=== PATIENT | male | born 1965 | race Caucasian/White ===

== ENCOUNTER 2019-02-06 14:16 | Inpatient (IN) | payer MEDICAID ==
[~2019-02-06] VITALS: Ht 167.6 cm; Wt 75.3 kg
[2019-02-06] MEDS ORDERED: ONDANSETRON HCL 4MG/2ML INJ IV STA (15:02)
[2019-02-06] MEDS ORDERED: MORPHINE SULFATE 4 MG/ML CPJ (NOT FOR IM USE) IV STA (15:02)
[2019-02-06 15:14] LABS: BASOPHILS % 0.7 % (0.0-2.0); EOSINOPHILS % 0.5 % (0.0-5.0); HEMATOCRIT. 43.9 % (42.0-52.0); HEMOGLOBIN. 14.8 g/dL (14.0-18.0); LYMPHOCYTES % 21.5 % (20.0-50.0); MEAN CORPUSCULAR HEMOGLOBIN 29.3 pg (28.0-32.0); MEAN CORPUSCULAR VOLUME 86.9 fL (80.0-94.0); MEAN PLATELET VOLUME 8.8 fl (7.4-10.4); MONOCYTES % 7.5 % (2.0-8.0); NEUTROPHILS % 69.8 % (40.0-76.0); PLATELET 198 x1000/uL (130-400); RED BLOOD CELL COUNT 5.05 mill/uL (4.7-6.1); RED CELL DISTRIBUTION WIDTH 15.4 % (11.6-14.6)
[2019-02-06] MEDS ORDERED: ASPIRIN 81MG TABLET PO ONE (15:15)
[2019-02-06 15:18] LABS: CHLORIDE 106 mEq/L (98-107)
[2019-02-06 15:20] LABS: PROTHROMBIN TIME 10.3 sec (9.6-11.0)
[2019-02-06 16:16] LABS: CLARITY URINE CLEAR (CLEAR); COLOR URINE YELLOW (YELLOW); KETONES URINE NEGATIVE (NEGATIVE); LEUKOCYTE ESTERASE URINE NEGATIVE (NEGATIVE); NITRITE URINE NEGATIVE (NEGATIVE); OCCULT BLOOD URINE NEGATIVE (NEGATIVE); PH URINE 7.5 (4.5-8.0); PROTEIN URINE NEGATIVE (NEGATIVE); SPECIFIC GRAVITY URINE 1.009 (1.005-1.030); UROBILINOGEN URINE 0.2 E.U./dL (0.2-1.0)
[2019-02-06] MEDS ORDERED: KETOROLAC 30MG/ML VIAL IV ONE (17:15)
[2019-02-06 22:00] VITALS: BP 142/77
[2019-02-07] VITALS: BP 150/85
[2019-02-07 04:00] VITALS: BP 158/87
[2019-02-07] MEDS ORDERED: ACETAMINOPHEN 325MG TABLET PO PRN (05:45)
[2019-02-07] MEDS ORDERED: ZOLPIDEM TARTRATE 5MG TABLET PO PRN (05:45)
[2019-02-07] MEDS ORDERED: ONDANSETRON HCL 4MG/2ML INJ IV PRN (05:45)
[2019-02-07] MEDS ORDERED: KETOROLAC 30MG/ML VIAL IV PRN (06:00)
[2019-02-07 06:24] LABS: BASOPHILS % 0.6 % (0.0-2.0); EOSINOPHILS % 1.8 % (0.0-5.0); HEMOGLOBIN. 14.6 g/dL (14.0-18.0); LYMPHOCYTES % 24.6 % (20.0-50.0); MEAN CORPUSCULAR HEMOGLOBIN 29.7 pg (28.0-32.0); MEAN CORPUSCULAR VOLUME 87.7 fL (80.0-94.0); MEAN PLATELET VOLUME 9.2 fl (7.4-10.4); MONOCYTES % 9.9 % (2.0-8.0); NEUTROPHILS % 63.1 % (40.0-76.0); PLATELET 184 x1000/uL (130-400); RED BLOOD CELL COUNT 4.91 mill/uL (4.7-6.1); RED CELL DISTRIBUTION WIDTH 15.1 % (11.6-14.6)
[2019-02-07 07:22] LABS: CHLORIDE 106 mEq/L (98-107)
[2019-02-07 07:41] LABS: CREATINE KINASE 212 IU/L (39-308); LDL CHOLESTEROL 107 mg/dL (5-100)
[2019-02-07 07:44] LABS: HDL CHOLESTEROL 66 mg/dL (40-59)
[2019-02-07 07:48] LABS: CREATINE KINASE MB FRACTION 2.2 ng/mL (0.5-3.6)
[2019-02-07 08:00] VITALS: BP 138/77
[2019-02-07] MEDS ORDERED: ENOXAPARIN 40MG/0.4ML SYR SUBCUT SCH (09:00)
[2019-02-07] MEDS ORDERED: AMLODIPINE 5MG TABLET PO SCH (10:30)
[2019-02-07 12:00] VITALS: BP 139/73
[2019-02-07] MEDS ORDERED: DILTIAZEM HCL 120MG CAPSULE CD 24HR PO SCH (12:30)
[2019-02-07 15:23] VITALS: BP 139/76
== END 2019-02-07 15:40 | disposition home or self-care (01) | DRG 199 ==
LOC: ER 14:16 → 8WST 17:06 → ENRESERV 20:55
PROVIDERS: ADMIT Internal Medicine; ATTEND Internal Medicine
DX: I10 Essential (primary) hypertension (principal); F17.210 Nicotine dependence, cigarettes, uncomplicated; R51 Headache; R07.89 Other chest pain; R06.02 Shortness of breath; Z82.49 Family history of ischemic heart disease and other diseases of the circulatory system; Z91.14 Patient's other noncompliance with medication regimen
CPT/HCPCS: 36415; 71045; 80048; 80061; 82550; 82553; 83880; 84484; 93005; 96374; 96375; 99285; J1650; J1885; J2270; J2405